=== PATIENT | female | born 1990 ===

== ENCOUNTER → 2018-02-14 | Outpatient (CLI) | payer SELFPAY ==
[~2018-02-14] MED LIST: IBUP-1773 PO
--- NOTE | 2018-02-14 13:58 | Diagnostic Imaging Report ---
PROCEDURE: US OB SINGLE FETUS <14 WKS. TECHNIQUE: Multiple real-time grayscale images were obtained over the gravid uterus in various projections. INDICATION: Dating. FINDINGS: There is an intrauterine gestational sac containing a pole. [place]-rump length measurement is 38 mm consistent with 10 weeks 5 days gestation. heart rate was recorded at 152 beats per minute. No perigestational sac hemorrhage is seen. Gestational sac shape is within normal limits. Amniotic fluid volume is normal. The ovaries are not visualized due to bowel gas. IMPRESSION: Single live IUP approximately 10 weeks 5 days gestational age. The estimated date of confinement sonographically is 09/07/2018. Dictated by: Dictated on workstation # [id number]
== END ==
LOC: RAD 12:29
PROVIDERS: ATTEND Family Medicine
DX: Z34.81 Encounter for supervision of other normal pregnancy, first trimester (principal); Z3A.10 10 weeks gestation of pregnancy
CPT/HCPCS: 76801

== ENCOUNTER → 2018-04-13 | Outpatient (CLI) | payer MEDICAID ==
--- NOTE | 2018-04-13 13:40 | Diagnostic Imaging Report ---
INDICATION: survey. TECHNIQUE: Multiple real-time grayscale images were obtained over the gravid uterus. COMPARISON: 02/14/2018. FINDINGS: There is a single live fetus in a breech presentation. heart rate was recorded at 143 beats per minute. Placenta is posterior. Amniotic fluid volume is normal. Cervical length is 4.9 cm. Kidneys, bladder, and stomach are unremarkable. The brain is unremarkable. There is a three-vessel cord with normal insertion. The spine is unremarkable. Four-chamber heart view is not well seen on today's exam. Biometrical measurements are as follows: Biparietal 4.37 cm, age 19 weeks 2 days. Head circumference 15.92 cm, age 18 weeks 6 days. Abdominal circumference 13.16 cm, age 18 weeks 5 days. Femur length 3.07 cm, age 19 weeks 4 days. Sonographic estimate age: 19 weeks 1 days. Sonographic estimated date of delivery: 09/06/18. Estimated Weight: 271 gm (+/- 40 gm). LMP percentile: 48%. heart rate: 143 beats per minute. number: 1 of 1. IMPRESSION: Single live IUP of approximately 19 weeks gestational age demonstrating normal interval growth when compared with prior exam. survey is unremarkable, although the four-chamber heart view is not well seen today. Followup could be performed. Dictated by: Dictated on workstation # [id number]
== END ==
LOC: RAD 10:37
PROVIDERS: ATTEND Family Medicine
DX: Z36.89 Encounter for other specified antenatal screening (principal); Z3A.19 19 weeks gestation of pregnancy
CPT/HCPCS: 76805

== ENCOUNTER → 2018-06-17 | Outpatient (CLI) | payer MEDICAID ==
--- NOTE | 2018-06-17 17:22 | Diagnostic Imaging Report ---
INDICATION: Follow-up grade 2 placenta, amniotic fluid index. TECHNIQUE: Multiple real-time grayscale images were obtained over the gravid uterus. COMPARISON: 02/14/2018, 04/13/2018, and 05/19/2018. FINDINGS: The previous exam of 05/19/2018 noted a single live fetus in cephalic presentation. On this exam, the fetus is again visualized. The fetus is in variable presentation. heart motion is noted and a rate of 130 bpm is recorded. There are no obvious abnormalities identified. The growth parameters are not performed for this exam. The placenta is anterior and intact. There is no sign of a previa. The previous study suggested that the placenta was grade 2. At best, I would suggest that the placenta is perhaps early grade 2. On the prior exam, the amniotic fluid index was 21 cm (normal 8-22 cm). On this study, the amniotic fluid index has decreased somewhat and is now 18.7 cm. IMPRESSION: 1. There is a single live fetus of approximately 28 weeks 2 days gestation +/- 2 weeks. The EDC remains September 07, 2018. 2. There are no obvious abnormalities identified. 3. The placenta is anterior and perhaps early grade 2. There has been a slight decrease in the amniotic fluid volume in the interval since the prior exam. Dictated by: Dictated on workstation # [id number]
== END ==
LOC: RAD 15:57
PROVIDERS: ATTEND Family Medicine
DX: O43.103 Malformation of placenta, unspecified, third trimester (principal); Z3A.28 28 weeks gestation of pregnancy
CPT/HCPCS: 76816

== ENCOUNTER → 2018-08-12 | Outpatient (CLI) | payer MEDICAID ==
--- NOTE | 2018-08-12 18:29 | Diagnostic Imaging Report ---
INDICATION: Placenta abnormality in the third trimester. TECHNIQUE: Multiple real-time grayscale images were obtained over the gravid uterus. COMPARISON: 06/17/2018. FINDINGS: There is a single live intrauterine gestation in cephalic presentation. Amniotic fluid index is normal, measuring 12.9 cm. The placenta is anterior without evidence of previa. It is grade 2. heart rate is normal at 144 bpm. Measurements are given below. The stomach and bladder are seen. Biometrical measurements are as follows: Biparietal 8.35 cm, age 33 weeks 5 days. Head circumference 30.56 cm, age 34 weeks 1 days. Abdominal circumference 33.64 cm, age 37 weeks 4 days. Femur length 7.06 cm, age 36 weeks 2 days. Sonographic estimate age: 35 weeks 3 days. Sonographic estimated date of delivery: 09/13/18. Estimated Weight: 2915 gm (+/- 426 gm). LMP percentile: 74%. heart rate: 144 beats per minute. number: 1 of 1. IMPRESSION: 1. Single live intrauterine gestation measuring at 35 weeks and 3 days, which is concordant with the clinical dates. 2. Anterior grade 2 placenta without previa seen. Dictated by: Dictated on workstation # [id number]
== END ==
LOC: RAD 15:08
PROVIDERS: ATTEND Family Medicine
DX: O43.103 Malformation of placenta, unspecified, third trimester (principal); Z3A.35 35 weeks gestation of pregnancy
CPT/HCPCS: 76805

== ENCOUNTER 2018-08-17 15:30 | Inpatient (IN) | payer MEDICAID ==
[~2018-08-17] VITALS: Ht 149.9 cm; Wt 65.8 kg
[2018-08-17] VITALS (12 sets, daily range): BP systolic 107–151; BP diastolic 59–81
[2018-08-17] MEDS ORDERED: AMPICILLIN FOR IV USE 2,000 MG in NS (IVPB) 50 ML IV ONE (16:18)
[2018-08-17 16:20] LABS: BASOPHILS % (AUTO) 0 % (0-10); EOSINOPHILS # (AUTO) 0.2 10^3/uL (0.0-0.3); EOSINOPHILS % (AUTO) 2 % (0-10); HEMATOCRIT 38 % (35-52); HEMOGLOBIN 12.3 G/DL (11.5-16.0); LYMPHOCYTES # (AUTO) 1.9 X 10^3 (1.0-4.0); LYMPHOCYTES % (AUTO) 17 % (12-44); MEAN CORPUSCULAR HEMOGLOBIN 28 PG (25-34); MEAN CORPUSCULAR HGB CONC 33 G/DL (32-36); MEAN CORPUSCULAR VOLUME 86 FL (80-99); MEAN PLATELET VOLUME 11.3 FL (7.4-10.4); MONOCYTES % (AUTO) 9 % (0-12); NEUTROPHILS # (AUTO) 8.3 X 10^3 (1.8-7.8); NEUTROPHILS % (AUTO) 72 % (42-75); PLATELET COUNT 203 10^3/uL (130-400); RED BLOOD COUNT 4.36 10^6/uL (4.35-5.85); RED CELL DISTRIBUTION WIDTH 15.8 % (10.0-14.5); WHITE BLOOD COUNT 11.5 10^3/uL (4.3-11.0)
[2018-08-17] MEDS ORDERED: D5 LR IV SOLUTION 1,000 ML IV SCH (16:31)
--- NOTE | 2018-08-17 16:39 | History & Physical-OB ---
OB - Chief Complaint & HPI Date/Time Date of Admission: Date of Admission: Aug 17, 2018 at 3:30 pm Date seen by a Provider: Aug 17, 2018 Time Seen by a Provider: 16:15 Chief Complaint/History OB-Reason for Admission/Chief: Labor Hx : 5 Hx Para: 1122 Expected Date of Delivery: Sep 12, 2018 Gestational Age in Weeks: 36 Gestational Age in Days: 2 Other reason for admission: labor History of Labs O+, antibody neg, RI, GC/chlamydia neg. HIV/HepB/RPR NR. Penta low risk. 1 hour glucola normal. GBS pending. Other presented to clinic for routine Ob visit, noted to have pelvic pressure and intermittent back pain lasting 5 minutes at a time, cervical exam revealed dilation of 6 cm, sent to L&D for observation. On arrival had heart tones in the 60s for 4 minutes which did resolve with baseline in the 130s now. Noted to be 8 cm and holly regularly, admitted for PTL. Allergies and Home Medications Allergies Coded Allergies: No Known Drug Allergies (Unverified , 05/17/16) Home Medications Hydroxyprogesterone Caproate 250 Mg/1 Ml Vial, 250 MG IM WEEK, (Reported) Vit/Iron Fumarate/FA 1 Each Tablet, 1 EACH PO DAILY, (Reported) Patient Home Medication List Home Medication List Reviewed: Yes OB - History Hx of Present Care: Yes Ultrasounds: Normal mid trimester US Obstetrical Complications: None Medical Complications: None Other Concerns: On progesterone injections for labor prevention Information Induced Hypertension: No Maternal Gestational Diabetes: No Hemorrhage: No Obstetrical History Hx : 5 Hx Para: 2 Hx # Term Pregnancies: 1 Hx # Pregnancies: 1 Number of Living Children: 2 Hx Termination: No Hx Total # of Abortions (Spona: 2 Hx Multiple Gestation: No Hx Ectopic : No Hx Stillbirth: No Hx Complication: No Hx Induced Hypertens: No Hx Maternal Gestational Diabet: No Hx Hemorrhage: No Delivery History Hx Dystocia: No Hx Forceps Assisted Delivery: No Hx Vacuum Extraction Assisted: No Hx Placenta Abnormality: No Hx Distress: No Hx Large For Gestational Age I: No Hx Small for Gestational Age I: No Hx Section: No Hx Vaginal Delivery Post C-Sec: No Hx Blood Disorders: No Adverse Rxn to Tranfusion: No Patient Past Medical History no chronic medical problems Social History/Family History HIV/AIDS: No Sexually Transmitted Disease: No Alcohol Use: Denies Use Recreational Drug Use: No Smoking Cessation: Never smoker Immunizations Hepatitis A: No Hepatitis B: No Tetanus Booster (TDap): Unknown Rubella: immune RPR/VDRL: Negative GBS Status: Unknown HBsAG: Negative OB - Admission Exam Physical Exam Abdomen: Non tender Extremities: Normal Cervical Dilatation: 8cm Effacement: 50% Station: -1 Membranes: Intact Heart Rate: 130's Decelerations: Prolonged Decelerations (on arrival, resolved and no further decelerations) Short Term 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: Average (6-25) Contractions on Admission: < 5 Minutes Apart Labs Laboratory Tests Test 08/17/18 16:14 Range/Units White Blood Count 11.5 H 4.3-11.0 10^3/uL Red Blood Count 4.36 4.35-5.85 10^6/uL Hemoglobin 12.3 11.5-16.0 G/DL Hematocrit 38 35-52 % Mean Corpuscular Volume 86 80-99 FL Mean Corpuscular Hemoglobin 28 25-34 PG Mean Corpuscular Hemoglobin Concent 33 32-36 G/DL Red Cell Distribution Width 15.8 H 10.0-14.5 % Platelet Count 203 130-400 10^3/uL Mean Platelet Volume 11.3 H 7.4-10.4 FL Neutrophils (%) (Auto) 72 42-75 % Lymphocytes (%) (Auto) 17 12-44 % Monocytes (%) (Auto) 9 0-12 % Eosinophils (%) (Auto) 2 0-10 % Basophils (%) (Auto) 0 0-10 % Neutrophils # (Auto) 8.3 H 1.8-7.8 X 10^3 Lymphocytes # (Auto) 1.9 1.0-4.0 X 10^3 Monocytes # (Auto) 1.0 0.0-1.0 X 10^3 Eosinophils # (Auto) 0.2 0.0-0.3 10^3/uL Basophils # (Auto) 0.0 0.0-0.1 10^3/uL OB - Assessment/Plan/Diagnosis Assessment Assessment: active labor, labor Admission Dx 36 weeks gestation labor Admission Status: Inpatient Order (span 2 midnights) Reason for Inpatient Admission: Labor and delivery and course Plan Plan: Expectant Management, Induction (given advanced dilation, initial distress, will proceed with AROM) Other Plan Ampicillin for GBS unknown. Copy Copies To 1: AHMET CONNELL MD, BETHANY N MD Aug 17, 2018 4:39 pm
[2018-08-17] MEDS ORDERED: PREN1TAB19 PO (16:45)
[2018-08-17] MEDS ORDERED: HYDR250V7 IM (16:45)
[2018-08-17] MEDS ORDERED: OXYTOCIN/NORMAL SALINE 500 ML IV ONE (17:29)
[2018-08-17] MEDS ORDERED: FLU QUADRIvalent (5+ YOA) 2018-2019 (AFLURIA) 0.5 ML IM ONE (18:00)
[2018-08-17] MEDS ORDERED: IBUPROFEN 600 MG (MOTRIN) TAB PO ONE (18:15)
--- NOTE | 2018-08-17 18:22 | OB Labor & Delivery Record ---
Vag Delivery Note Vag Delivery Note Date of Delivery: 08/17/18 Preoperative Diagnosis: Liya Burgos is a 28 /Para 5 / 2, Gestational Age (wks)36with 2days Postoperative Diagnosis: Same Surgeon: AHMET CONNELL Machine Brusher: Satya Otero, MS4 Anesthesia: None Delivery Type: Findings: Viable female infant, apgars 8/9, weight 6#14 Lacerations: right vaginal abrasion Intact placenta with 3 vessel cord. Tight nuchal cord, unable to reduce, delivered through Estimated Blood Loss: 300 ml Complications: None Condition: Stable Description of Procedure: The patient is a who presented in active labor. She was admitted and informed consent was obtained. Her labor course was remarkable for rapid course. She progressed to complete dilatation and began to push. She was then set up for delivery. The 's head was delivered atraumatically in the JIMMIE position. The shoulders and remainder of the infant's body were then delivered without difficulty. Upon delivery, the infant was vigorous and placed on maternal abdomen. The cord was doubly clamped and cut and the was handed off to the pediatric staff. An intact placenta with 3- vessel cord delivered via Asad and there was found to be minimal bleeding.~ Vigorous fundal massage was performed and the fundus was found to be firm. IV oxytocin was given. Examination of the vagina and perineum revealed a right vaginal laceration repaired with one simple interrupted 3-0 vicryl suture. Following the repair, sponge, instrument and needle counts were correct. Mom and baby were both in stable condition in the labor suite. Vitals - Labs Labs Laboratory Tests 08/17/18 16:14: White Blood Count 11.5H, Red Blood Count 4.36, Hemoglobin 12.3, Hematocrit 38, Mean Corpuscular Volume 86, Mean Corpuscular Hemoglobin 28, Mean Corpuscular Hemoglobin Concent 33, Red Cell Distribution Width 15.8H, Platelet Count 203, Mean Platelet Volume 11.3H, Neutrophils (%) (Auto) 72, Lymphocytes (%) (Auto) 17 , Monocytes (%) (Auto) 9, Eosinophils (%) (Auto) 2, Basophils (%) (Auto) 0, Neutrophils # (Auto) 8.3H, Lymphocytes # (Auto) 1.9, Monocytes # (Auto) 1.0, Eosinophils # (Auto) 0.2, Basophils # (Auto) 0.0 AHMET CONNELL MD Aug 17, 2018 6:22 pm
[2018-08-17] MEDS ORDERED: OXYTOCIN/NORMAL SALINE 500 ML IV SCH (20:29)
[2018-08-17] MEDS ORDERED: AMPICILLIN FOR IV USE 1,000 MG in NS (IVPB) 50 ML IV SCH (20:30)
[2018-08-17] MEDS ORDERED: BENZOCAINE/MENTHOL (DERMOPLAST) 56 ML CAN TP PRN (20:30)
[2018-08-17] MEDS ORDERED: WITCH HAZEL(TUCKS) 40 EA JAR TOP PRN (20:30)
[2018-08-17] MEDS ORDERED: CATHETER FLUSH 10 ML SYR IV SCH (22:00)
[2018-08-18] VITALS: BP 108/59
[2018-08-18] MEDS: IBUPROFEN 600 MG (MOTRIN) TAB PO SCH ×4 (00:27→19:05)
[2018-08-18] MEDS: CATHETER FLUSH 10 ML SYR IV SCH ×2 (00:27→06:19)
[2018-08-18 04:00] VITALS: BP 109/58
[2018-08-18 06:00] LABS: BASOPHILS % (AUTO) 0 % (0-10); EOSINOPHILS # (AUTO) 0.1 10^3/uL (0.0-0.3); EOSINOPHILS % (AUTO) 1 % (0-10); HEMATOCRIT 38 % (35-52); HEMOGLOBIN 12.5 G/DL (11.5-16.0); LYMPHOCYTES # (AUTO) 1.8 X 10^3 (1.0-4.0); LYMPHOCYTES % (AUTO) 13 % (12-44); MEAN CORPUSCULAR HEMOGLOBIN 28 PG (25-34); MEAN CORPUSCULAR HGB CONC 33 G/DL (32-36); MEAN CORPUSCULAR VOLUME 85 FL (80-99); MEAN PLATELET VOLUME 11.2 FL (7.4-10.4); MONOCYTES # (AUTO) 1.2 X 10^3 (0.0-1.0); MONOCYTES % (AUTO) 8 % (0-12); NEUTROPHILS # (AUTO) 11.2 X 10^3 (1.8-7.8); NEUTROPHILS % (AUTO) 78 % (42-75); PLATELET COUNT 237 10^3/uL (130-400); RED BLOOD COUNT 4.44 10^6/uL (4.35-5.85); RED CELL DISTRIBUTION WIDTH 16.1 % (10.0-14.5); WHITE BLOOD COUNT 14.3 10^3/uL (4.3-11.0)
[2018-08-18] MEDS: PRENATAL VITAMIN 1 EA TAB PO SCH (09:20)
[2018-08-18 13:05] VITALS: BP 112/64
--- NOTE | 2018-08-18 14:04 | Postpartum Progress Note ---
Note Note Day # 1 Subjective: Patient is without complaints. Ambulating, voiding. Tolerating a regular diet without nausea or vomiting. Normal lochia. Pain is well controlled with oral pain medications. Bottle feeding infant Objective: Laboratory Tests Test 08/17/18 16:14 08/18/18 05:45 Range/Units White Blood Count 11.5 H 14.3 H 4.3-11.0 10^3/uL Red Blood Count 4.36 4.44 4.35-5.85 10^6/uL Hemoglobin 12.3 12.5 11.5-16.0 G/DL Hematocrit 38 38 35-52 % Mean Corpuscular Volume 86 85 80-99 FL Mean Corpuscular Hemoglobin 28 28 25-34 PG Mean Corpuscular Hemoglobin Concent 33 33 32-36 G/DL Red Cell Distribution Width 15.8 H 16.1 H 10.0-14.5 % Platelet Count 203 237 130-400 10^3/uL Mean Platelet Volume 11.3 H 11.2 H 7.4-10.4 FL Neutrophils (%) (Auto) 72 78 H 42-75 % Lymphocytes (%) (Auto) 17 13 12-44 % Monocytes (%) (Auto) 9 8 0-12 % Eosinophils (%) (Auto) 2 1 0-10 % Basophils (%) (Auto) 0 0 0-10 % Neutrophils # (Auto) 8.3 H 11.2 H 1.8-7.8 X 10^3 Lymphocytes # (Auto) 1.9 1.8 1.0-4.0 X 10^3 Monocytes # (Auto) 1.0 1.2 H 0.0-1.0 X 10^3 Eosinophils # (Auto) 0.2 0.1 0.0-0.3 10^3/uL Basophils # (Auto) 0.0 0.0 0.0-0.1 10^3/uL Physical Exam: General - Alert and oriented, no apparent distress Abdomen - Soft, appropriately tender to palpation, non-distended, fundus firm at umbilicus Extremities - no edema, negative Tacos's bilaterally Assessment: 28 yo G5 now P2 post- day # 1, status post @ 36.2 Recovering well, hemodynamically stable Plan: Routine care. Encourage breast feeding, mother would like to bottle fed infant Encourage ambulation. Plan for discharge tomorrow if infant is doing well Vitals - Labs Vital Signs - I&O Vital Signs Date Time Temp Pulse Resp B/P (MAP) Pulse Ox O2 Delivery O2 Flow Rate FiO2 08/18/18 13:05 98.9 72 18 112/64 (80) 98 Room Air 08/18/18 04:00 97.4 74 18 109/58 (75) 98 Room Air 08/18/18 00:00 97.9 68 18 108/59 (75) 98 Room Air 08/17/18 20:09 59 20 107/61 (76) Room Air 08/17/18 20:02 72 20 112/59 (76) Room Air 08/17/18 20:00 98.0 66 20 110/62 (78) 99 Room Air 08/17/18 19:46 98.2 74 20 113/59 (77) Room Air 08/17/18 19:31 68 20 124/64 (84) Room Air 08/17/18 19:16 69 20 125/69 (87) Room Air 08/17/18 19:01 67 20 126/70 (88) Room Air 08/17/18 18:46 65 20 127/66 (86) Room Air 08/17/18 18:30 98.4 64 20 119/59 (79) Room Air 08/17/18 18:15 98.1 66 20 138/61 (86) Room Air 08/17/18 18:00 99.2 76 20 151/81 (104) Room Air 08/17/18 17:40 98.0 80 20 137/70 (92) Room Air I & O 08/18/18 07:00 Intake Total 500 ml Output Total 900 ml Balance -400 ml Labs Laboratory Tests 08/17/18 16:14: White Blood Count 11.5H, Red Blood Count 4.36, Hemoglobin 12.3, Hematocrit 38, Mean Corpuscular Volume 86, Mean Corpuscular Hemoglobin 28, Mean Corpuscular Hemoglobin Concent 33, Red Cell Distribution Width 15.8H, Platelet Count 203, Mean Platelet Volume 11.3H, Neutrophils (%) (Auto) 72, Lymphocytes (%) (Auto) 17 , Monocytes (%) (Auto) 9, Eosinophils (%) (Auto) 2, Basophils (%) (Auto) 0, Neutrophils # (Auto) 8.3H, Lymphocytes # (Auto) 1.9, Monocytes # (Auto) 1.0, Eosinophils # (Auto) 0.2, Basophils # (Auto) 0.0 08/18/18 05:45: White Blood Count 14.3H, Red Blood Count 4.44, Hemoglobin 12.5, Hematocrit 38, Mean Corpuscular Volume 85, Mean Corpuscular Hemoglobin 28, Mean Corpuscular Hemoglobin Concent 33, Red Cell Distribution Width 16.1H, Platelet Count 237, Mean Platelet Volume 11.2H, Neutrophils (%) (Auto) 78H, Lymphocytes (%) (Auto) 13, Monocytes (%) (Auto) 8, Eosinophils (%) (Auto) 1, Basophils (%) (Auto) 0, Neutrophils # (Auto) 11.2H, Lymphocytes # (Auto) 1.8, Monocytes # (Auto) 1.2H, Eosinophils # (Auto) 0.1, Basophils # (Auto) 0.0 PRISCA PRIETO MD Aug 18, 2018 2:04 pm
[2018-08-18 19:55] VITALS: BP 100/56
[2018-08-19 03:23] VITALS: BP 99/63
[2018-08-19] MEDS: IBUPROFEN 600 MG (MOTRIN) TAB PO SCH ×3 (03:23→17:50)
[2018-08-19] MEDS: PRENATAL VITAMIN 1 EA TAB PO SCH (08:00)
[2018-08-19 08:41] VITALS: BP 108/65
[2018-08-19 17:52] VITALS: BP 105/66
[2018-08-19 17:58] VITALS: BP 108/65
--- NOTE | 2018-08-19 18:55 | Discharge Summary ---
Diagnosis/Chief Complaint Date of Admission Aug 17, 2018 at 16:17 Date of Discharge Aug 19, 2018 at 18:00 Admission Diagnosis Admission Diagnosis labor @ 36 weeks Discharge Diagnosis delivery of female Chief Complaint/HPI Chief Complaint/HPI Admitted for advanced cervical dilation and proceeded to active labor Discharge Summary-Simple/Stand Procedures @ 36 weeks Discharge Physical Examination Allergies: Coded Allergies: No Known Drug Allergies (Unverified , 05/17/16) Vitals & I&Os Vital Sign - Last 12Hours Date Time Temp Pulse Resp B/P (MAP) Pulse Ox O2 Delivery O2 Flow Rate FiO2 08/19/18 17:58 68 16 108/65 98 Room Air 08/19/18 17:52 97.7 General Appearance: Alert, Oriented X3, Cooperative, No Acute Distress HEENT: Mucous Memb Moist/[place] Respiratory: Clear to Auscultation, Normal Air Movement Cardiovascular: Regular Rate, No Murmurs Abdominal: Normal Bowel Sounds, Soft, No Tenderness, No Masses, Other (Fundus firm and below umbilicus) Extremities: No Edema, No Tenderness/Swelling Neuro: Strength at 5/5 X4 Ext, Cranial Nerves 3-12 NL Psych/Mental Status: Mental Status NL, Mood NL Hospital Course See final discharge diagnosis. Discussion & Recommendations 28 yo G5 now P2 delivered female via @ 36.2 wga. Discharge Condition at discharge stable Instructions to patient/family Please see electronic discharge instructions given to patient. Discharge Medications Reviewed and agree with Discharge Medication list on patient's Discharge Instruction sheet Clinical Quality Measures DVT/VTE Risk/Contraindication: Risk Factor Score Per Nursin RFS Level Per Nursing on Admit: 1=Low/No VTE PPX Copy Copies To 1: AHMET CONNELL MD, HOLLY R MD Aug 19, 2018 18:55
== END 2018-08-19 18:00 | disposition home or self-care (01) | DRG 807 ==
LOC: LDRP 15:30 → OBSVTOIN 16:17 → LDRP 20:20
PROVIDERS: ADMIT Family Medicine; ATTEND Family Medicine
PROC: 0HQ9XZZ Repair Perineum Skin, External Approach (ICD-10-PCS; principal; 2018-08-17)
PROC: 10E0XZZ Delivery of Products of Conception, External Approach (ICD-10-PCS; 2018-08-17)
DX: O60.14X0 Preterm labor third trimester with preterm delivery third trimester, not applicable or unspecified (principal); O76 Abnormality in fetal heart rate and rhythm complicating labor and delivery; O70.0 First degree perineal laceration during delivery; O69.81X0 Labor and delivery complicated by cord around neck, without compression, not applicable or unspecified; Z3A.36 36 weeks gestation of pregnancy; Z37.0 Single live birth
CPT/HCPCS: 36415; 85025; 86850; 86900; 86901

== ENCOUNTER 2018-10-05 16:18 | Emergency (ER) | payer MEDICAID ==
[~2018-10-05] VITALS: Ht 149.9 cm; Wt 58.1 kg
[~2018-10-05 16:18] MED LIST changes: +HYDR250V7 IM; +PREN1TAB19 PO
[2018-10-05 17:10] LABS: BASOPHILS % (AUTO) 0 % (0-10); EOSINOPHILS # (AUTO) 0.4 10^3/uL (0.0-0.3); EOSINOPHILS % (AUTO) 4 % (0-10); HEMATOCRIT 41 % (35-52); HEMOGLOBIN 13.5 G/DL (11.5-16.0); LYMPHOCYTES # (AUTO) 2.2 X 10^3 (1.0-4.0); LYMPHOCYTES % (AUTO) 23 % (12-44); MEAN CORPUSCULAR HEMOGLOBIN 29 PG (25-34); MEAN CORPUSCULAR HGB CONC 33 G/DL (32-36); MEAN CORPUSCULAR VOLUME 87 FL (80-99); MEAN PLATELET VOLUME 11.7 FL (7.4-10.4); MONOCYTES # (AUTO) 0.9 X 10^3 (0.0-1.0); MONOCYTES % (AUTO) 9 % (0-12); NEUTROPHILS # (AUTO) 6.2 X 10^3 (1.8-7.8); NEUTROPHILS % (AUTO) 64 % (42-75); PLATELET COUNT 219 10^3/uL (130-400); RED BLOOD COUNT 4.72 10^6/uL (4.35-5.85); RED CELL DISTRIBUTION WIDTH 14.8 % (10.0-14.5); WHITE BLOOD COUNT 9.7 10^3/uL (4.3-11.0)
[2018-10-05 17:19] LABS: BILIRUBIN,URINE NEGATIVE (NEGATIVE); CLARITY,URINE CLEAR; COLOR,URINE YELLOW; GLUCOSE, URINE (UA) NEGATIVE (NEGATIVE); KETONES,URINE 1+ (NEGATIVE); LEUKOCYTE ESTERASE ,URINE 1+ (NEGATIVE); NITRITE,URINE NEGATIVE (NEGATIVE); PH,URINE 6.5 (5-9); PROTEIN,URINE 1+ (NEGATIVE); UROBILINOGEN,URINE NORMAL (NORMAL)
[2018-10-05 17:29] LABS: ALANINE AMINOTRANSFERASE 175 U/L (0-55); ALBUMIN 4.7 GM/DL (3.2-4.5); ALKALINE PHOSPHATASE 122 U/L (40-136); BILIRUBIN,TOTAL 0.9 MG/DL (0.1-1.0); BUN/CREATININE RATIO 14; CALCIUM 9.6 MG/DL (8.5-10.1); CARBON DIOXIDE 20 MMOL/L (21-32); CHLORIDE 105 MMOL/L (98-107); CREATININE SERUM 0.69 MG/DL (0.60-1.30); GFR ESTIMATED > 60; GLUCOSE 84 MG/DL (70-105); POTASSIUM 4.1 MMOL/L (3.6-5.0); SODIUM 138 MMOL/L (135-145)
[2018-10-05 17:54] LABS: BACTERIA,URINE NEGATIVE /HPF; WBC,URINE 0-2 /HPF
[2018-10-05] MEDS ORDERED: IOHEXOL 350 MG/ML 100 ML (OMNIPAQUE 350) VIAL IV ONE (18:15)
[2018-10-05] MEDS ORDERED: RECEIVED CONTRAST (Hold Metformin) IV SCH (18:15)
[2018-10-05] MEDS ORDERED: NS 250 ML (IVPB) BAG IV ONE (18:15)
--- NOTE | 2018-10-05 18:42 | Diagnostic Imaging Report ---
PROCEDURE: CT abdomen and pelvis with contrast. TECHNIQUE: Multiple contiguous axial images were obtained through the abdomen and pelvis after administration of intravenous contrast. INDICATION: Abdominal pain with vaginal bleeding. with delivery on August 17. Heavy bleeding for eight days. COMPARISON: None. FINDINGS: The lung bases are clear. The heart is normal in size. There is no pericardial effusion. No focal liver lesions are seen. The spleen appears normal. The kidneys are normal. There is no hydronephrosis. The pancreas is normal. The adrenal glands appear normal. The bowel loops are nondistended without evidence of obstruction. The appendix is normal. There is a [id number] amount of stool in the colon. There is no free fluid or free air seen. No pelvic masses are seen. The urinary bladder wall is mildly thickened, likely due to underdistention. There is subendometrial enhancement with mild prominence of the uterus, likely due to status. No discrete mass is seen. IMPRESSION: 1. Mild prominence of the uterus likely due to status. No discrete mass is seen. 2. Mild thickening of the urinary bladder wall is likely due to underdistention. Please correlate with urinalysis. Dictated by: Dictated on workstation # [id number]
--- NOTE | 2018-10-05 18:50 | ED Abdominal Pain ---
General Chief Complaint: Abdominal/GI Problems Stated Complaint: ABD PAIN Nursing Triage Note: ARRIVED VIA AMB TO ROOM 09. COMPLAINS OF ABD PAIN WITH HEAVY VAG BLEEDING. DENIES . DELIVERED A BABY Jul. STATES SHE HAS BEEN HAD HEAVY BLEEDING FOR 8 DAYS. Sepsis Screen: No Definite Risk Source of Information: Patient, [employer] Exam Limitations: Language Barrier History of Present Illness Date Seen by Provider: Oct 05, 2018 Time Seen by Provider: 16:30 Initial Comments This 28-year-old Portuguese-speaking woman presents to the emergency room with primary complaint of the left lower quadrant pain and heavy bleeding. She is approximately 6 weeks from a vaginal delivery August 20. She reports bleeding until about 3 weeks ago. Then she had 2 weeks of no bleeding. Then she began to bleed heavily again 8 days ago and developed left lower quadrant pain. She is afebrile but reports subjective fever. She does have a history of heavy bleeding with her periods. She denies any vaginal discharge other than bleeding. She reports her delivery was vaginal with no complications. She has resumed sexual activity since delivery. She denies any nausea, vomiting, constipation, diarrhea, or dysuria. She reports her pain is 10 out of 10. However, she states she does not want any medication for pain as she took Tylenol before coming to the ER, and it appears to be working. She denies any alleviating or exacerbating factors other than improvement with Tylenol. Dr. Connell is her women's health provider. Language line was used to assist in the history and physical. Allergies and Home Medications Allergies Coded Allergies: No Known Drug Allergies (Unverified , 05/17/16) Home Medications Vit/Iron Fumarate/FA 1 Each Tablet, 1 EACH PO DAILY, (Reported) Patient Home Medication List Home Medication List Reviewed: Yes Review of Systems Review of Systems Constitutional: see HPI EENTM: No Symptoms Reported Respiratory: No Symptoms Reported Cardiovascular: No Symptoms Reported Gastrointestinal: See HPI Genitourinary: See HPI Musculoskeletal: no symptoms reported Skin: no symptoms reported Psychiatric/Neurological: No Symptoms Reported Endocrine: No Symptoms Reported Hematologic/Lymphatic: No Symptoms Reported Past Qavoniu-Tmtwnl-Yxjbrg Hx Past Med/Social Hx: Reviewed and Corrections made Patient Social History Alcohol Use: Denies Use Recreational Drug Use: No Smoking Status: Unknown if Ever Smoked Recent Foreign Travel: No Contact w/Someone Who Travel: No Recent Infectious Disease Expo: No Recent Hopitalizations: No Immunizations Up To Date Tetanus Booster (TDap): Unknown PED Vaccines UTD: No Date of Influenza Vaccine: Aug 07, 2018 Seasonal Allergies Seasonal Allergies: No Past Medical History Surgeries: No Respiratory: No Cardiac: No Neurological: No : No Last Menstrual Period: Sep 27, 2018 Reproductive Disorders: No Female Reproductive Disorders: Denies Sexually Transmitted Disease: No HIV/AIDS: No Genitourinary: No Gastrointestinal: No Musculoskeletal: No Endocrine: No HEENT: No Cancer: No Psychosocial: No Integumentary: No Blood Disorders: No Adverse Reaction/Blood Tranf: No Family Medical History Patient reports no known family medical history. Physical Exam Vital Signs Vital Signs - First Documented 10/05/18 10/05/18 16:37 19:06 Temp 98.0 Pulse 64 Resp 16 B/P (MAP) 136/91 (106) Pulse Ox 99 O2 Delivery Room Air Capillary Refill : Less Than 3 Seconds Height/Weight/BMI Height: 4'11.00" Weight: 128lbs. 0.0oz. 58.822791iz; 29.3 BMI Method:Stated General Appearance: WD/WN, no apparent distress HEENT: PERRL/EOMI, normal ENT inspection Neck: normal inspection Respiratory: lungs clear, normal breath sounds, no respiratory distress, no accessory muscle use Cardiovascular: regular rate, rhythm, no edema, no murmur Gastrointestinal: normal bowel sounds, soft; No distended; tenderness ( Generalized mild tenderness with more moderate intensity in the left lower quadrant) Extremities: normal inspection, no pedal edema, normal capillary refill Neurologic/Psychiatric: caser in II-XII nml as tested, no motor/sensory deficits, alert, normal mood/affect, oriented x 3 Skin: normal color, warm/dry Progress/Results/Core Measures Results/Orders Lab Results Laboratory Tests Test 10/05/18 17:00 10/05/18 17:10 Range/Units White Blood Count 9.7 4.3-11.0 10^3/uL Red Blood Count 4.72 4.35-5.85 10^6/uL Hemoglobin 13.5 11.5-16.0 G/DL Hematocrit 41 35-52 % Mean Corpuscular Volume 87 80-99 FL Mean Corpuscular Hemoglobin 29 25-34 PG Mean Corpuscular Hemoglobin Concent 33 32-36 G/DL Red Cell Distribution Width 14.8 H 10.0-14.5 % Platelet Count 219 130-400 10^3/uL Mean Platelet Volume 11.7 H 7.4-10.4 FL Neutrophils (%) (Auto) 64 42-75 % Lymphocytes (%) (Auto) 23 12-44 % Monocytes (%) (Auto) 9 0-12 % Eosinophils (%) (Auto) 4 0-10 % Basophils (%) (Auto) 0 0-10 % Neutrophils # (Auto) 6.2 1.8-7.8 X 10^3 Lymphocytes # (Auto) 2.2 1.0-4.0 X 10^3 Monocytes # (Auto) 0.9 0.0-1.0 X 10^3 Eosinophils # (Auto) 0.4 H 0.0-0.3 10^3/uL Basophils # (Auto) 0.0 0.0-0.1 10^3/uL Sodium Level 138 135-145 MMOL/L Potassium Level 4.1 3.6-5.0 MMOL/L Chloride Level 105 98-107 MMOL/L Carbon Dioxide Level 20 L 21-32 MMOL/L Anion Gap 13 5-14 MMOL/L Blood Urea Nitrogen 10 7-18 MG/DL Creatinine 0.69 0.60-1.30 MG/DL Estimat Glomerular Filtration Rate > 60 BUN/Creatinine Ratio 14 Glucose Level 84 70-105 MG/DL Calcium Level 9.6 8.5-10.1 MG/DL Corrected Calcium 8.5-10.1 MG/DL Total Bilirubin 0.9 0.1-1.0 MG/DL Aspartate Amino Transf (AST/SGOT) 161 H 5-34 U/L Alanine Aminotransferase (ALT/SGPT) 175 H 0-55 U/L Alkaline Phosphatase 122 40-136 U/L C-Reactive Protein High Sensitivity 2.71 H 0.00-0.50 MG/DL Total Protein 8.0 6.4-8.2 GM/DL Albumin 4.7 H 3.2-4.5 GM/DL Serum Test, Qualitative NEGATIVE NEGATIVE Urine Color YELLOW Urine Clarity CLEAR Urine pH 6.5 5-9 Urine Specific [place] 1.015 L 1.016-1.022 Urine Protein 1+ H NEGATIVE Urine Glucose (UA) NEGATIVE NEGATIVE Urine Ketones 1+ H NEGATIVE Urine Nitrite NEGATIVE NEGATIVE Urine Bilirubin NEGATIVE NEGATIVE Urine Urobilinogen NORMAL NORMAL MG/DL Urine Leukocyte Esterase 1+ H NEGATIVE Urine RBC (Auto) 4+ H NEGATIVE Urine RBC 2-5 H /HPF Urine WBC 0-2 /HPF Urine Squamous Epithelial Cells 2-5 /HPF Urine Crystals NONE /LPF Urine Bacteria NEGATIVE /HPF Urine Casts NONE /LPF Urine Mucus SMALL H /LPF Urine Culture Indicated NO My Orders Orders - MALATHI GARCIA MD Ua Culture If Indicated (10/05/18 16:30) Urine Bedside (10/05/18 16:30) Cbc With Automated Diff (10/05/18 16:57) Comprehensive Metabolic Panel (10/05/18 16:57) Hs C Reactive Protein (10/05/18 16:57) Hcg,Qualitative Serum (10/05/18 16:57) Ct Abdomen/Pelvis W (10/05/18 17:52) Iohexol Injection (Omnipaque 350 Mg/Ml 1 (10/05/18 18:15) Contrast Received (Contrast Received) (10/05/18 18:15) Ns (Ivpb) (Sodium Chloride 0.9%) (10/05/18 18:15) Ketorolac Injection (Toradol Injection) (10/05/18 19:00) Medications Given in ED Vital Signs/I&O 10/05/18 10/05/18 16:37 19:06 Temp 98.0 98.0 Pulse 64 54 Resp 16 18 B/P (MAP) 136/91 (106) 104/70 (81) Pulse Ox 99 98 O2 Delivery Room Air Blood Pressure Mean: 106 Urine -Bedside: Negative Progress Progress Note : Progress Note Interview was conducted with the help of the language line medical equipment sales. History was obtained and plan was discussed with the patient. I discussed risks and benefits of CT scan including risk of radiation exposure. Patient was agreeable to CT scan. Lab work and UA were unremarkable. CT scan was pursued and revealed no source of patient's pain. Patient stated her pain was greatly reduced after taking Tylenol at home. She was further treated with Toradol before dismissal. Language line was again used to discuss discharge instructions with the patient. Diagnostic Imaging Diagonstic Imaging: CT Plain Films/CT/US/NM/MRI: abdomen, pelvis Comments CT abdomen and pelvis viewed by me and report reviewed. See report below: NAME: B[facility] REC#: [id number] PT STATUS: REG ER : 1990 PHYSICIAN: MALATHI GARCAI MD ADMIT DATE: 10/05/18/ER Draft Date of Exam:10/05/18 CT ABDOMEN/PELVIS W PROCEDURE: CT abdomen and pelvis with contrast. TECHNIQUE: Multiple contiguous axial images were obtained through the abdomen and pelvis after administration of intravenous contrast. INDICATION: Abdominal pain with vaginal bleeding. with delivery on August 17. Heavy bleeding for eight days. COMPARISON: None. FINDINGS: The lung bases are clear. The heart is normal in size. There is no pericardial effusion. No focal liver lesions are seen. The spleen appears normal. The kidneys are normal. There is no hydronephrosis. The pancreas is normal. The adrenal glands appear normal. The bowel loops are nondistended without evidence of obstruction. The appendix is normal. There is a [id number] amount of stool in the colon. There is no free fluid or free air seen. No pelvic masses are seen. The urinary bladder wall is mildly thickened, likely due to underdistention. There is subendometrial enhancement with mild prominence of the uterus, likely due to status. No discrete mass is seen. IMPRESSION: 1. Mild prominence of the uterus likely due to status. No discrete mass is seen. 2. Mild thickening of the urinary bladder wall is likely due to underdistention. Please correlate with urinalysis. Dictated on workstation # [id number] Dict: 10/05/18 1831 Trans: 10/05/18 1841 [id number] Interpreted by: BAILEY FELTON MD Departure Impression Primary Impression: Left lower quadrant pain Additional Impression: Vaginal bleeding Disposition: HOME, SELF-CARE Condition: Improved Departure-Patient Inst. Decision time for Depature: 18:49 Referrals: AHMET CONNELL MD (PCP/Family) Primary Care Physician Patient Instructions: Acute Abdomen (Belly Pain), Adult (DC) Add. Discharge Instructions: For pain take ibuprofen up to 600 mg every 6 hours as needed. Add Tylenol ( acetaminophen) up to 650 mg every 6 hours as needed. Follow-up with Dr. Connell as soon as possible. Please call tomorrow morning for an appointment. Return to the emergency room if symptoms worsen. All discharge instructions reviewed with patient and/or family. Voiced understanding. Copy Copies To 1: AHMET CONNELL MD, JOSHUA T MD Oct 05, 2018 18:50
[2018-10-05] MEDS ORDERED: KETOROLAC 30 MG/ML VIAL IVP ONE (19:00)
[2018-10-05 19:06] VITALS: BP 104/70
== END 2018-10-05 19:06 | disposition home or self-care (01) ==
LOC: EDUNIT# 16:18 → ER 16:20
DX: O72.1 Other immediate postpartum hemorrhage (principal)
CPT/HCPCS: 36415; 74177; 80053; 81000; 84703; 85025; 85027; 86141; 96374